=== PATIENT | male | born 1965 | race African-American/Black ===

== ENCOUNTER 2017-10-17 14:48 | Emergency (ER) | payer SELFPAY | END 2017-10-17 15:22 | disposition home or self-care (01) | LOC: BURERS 14:48 | DX: J20.9 Acute bronchitis, unspecified (principal); M70.71 Other bursitis of hip, right hip | CPT/HCPCS: 99283 ==

== ENCOUNTER 2017-11-04 14:22 | Emergency (ER) | payer SELFPAY | END 2017-11-04 14:45 | disposition home or self-care (01) | LOC: BURERS 14:22 | DX: M25.551 Pain in right hip (principal) | CPT/HCPCS: 99283 ==

== ENCOUNTER 2018-06-30 14:13 | Emergency (ER) | payer SELFPAY ==
--- NOTE | 2018-06-30 19:00 | RAD ---
LEFT ANKLE THREE VIEWS: 06/30/18 No fracture was seen. The joint appears intact. There is some mild soft tissue swelling. IMPRESSION: No acute bony finding. POS: HOME
== END 2018-06-30 15:03 | disposition home or self-care (01) ==
LOC: BURERS 14:13
DX: S93.402A Sprain of unspecified ligament of left ankle, initial encounter (principal); W20.8XXA Other cause of strike by thrown, projected or falling object, initial encounter

== ENCOUNTER 2018-11-03 21:50 | Emergency (ER) | payer OTHER, SELFPAY ==
[2018-11-03] MEDS ORDERED: Ketorolac Tromethamine 60 MG/2 ML VIAL ONE (22:13)
[2018-11-03] MEDS ORDERED: Ibuprofen 200 MG TAB ONE (22:16)
--- NOTE | 2018-11-03 22:47 | RAD ---
LEFT ANKLE THREE VIEWS 11/03/18 Comparison is made with the 06/30/18 study. The ankle mortise appears intact. No fracture was seen. The articular surfaces are smooth. IMPRESSION: No acute bony finding. POS: HOME
--- NOTE | 2018-11-03 22:48 | RAD ---
LEFT FOOT THREE VIEWS: 11/03/18 No fracture was seen. All bones appear intact. The joint showed no acute findings. IMPRESSION: No acute bony findings. POS: HOME
== END 2018-11-03 22:22 | disposition home or self-care (01) ==
LOC: BURERS 21:50
DX: S90.02XA Contusion of left ankle, initial encounter (principal); W20.8XXA Other cause of strike by thrown, projected or falling object, initial encounter
CPT/HCPCS: J1885

== ENCOUNTER 2019-08-10 20:23 | Emergency (ER) | payer OTHER, SELFPAY ==
[2019-08-10] MEDS ORDERED: hydrOXYzine 25 MG TAB ONE (20:37)
== END 2019-08-10 20:38 | disposition home or self-care (01) ==
LOC: BURERS 20:23
DX: L42 Pityriasis rosea (principal)
CPT/HCPCS: 99282

== ENCOUNTER 2019-08-14 11:45 | Emergency (ER) | payer SELFPAY | END 2019-08-14 12:04 | disposition home or self-care (01) | LOC: BURERS 11:45 | DX: M25.572 Pain in left ankle and joints of left foot (principal); W20.8XXA Other cause of strike by thrown, projected or falling object, initial encounter | CPT/HCPCS: 99281 ==

== ENCOUNTER 2020-09-27 21:23 | Emergency (ER) | payer OTHER, SELFPAY ==
[2020-09-28 16:13] LABS: SARS-CoV-2 PCR by NAA DETECTED (NotDetected)
== END 2020-09-27 21:55 | disposition home or self-care (01) ==
LOC: BURERS 21:23
DX: U07.1 COVID-19 (principal)
CPT/HCPCS: 99283; U0003; U0005

== ENCOUNTER 2020-11-13 09:38 | Emergency (ER) | payer SELFPAY | END 2020-11-13 10:02 | disposition home or self-care (01) | LOC: BURERS 09:38 | DX: Z03.89 Encounter for observation for other suspected diseases and conditions ruled out (principal) | CPT/HCPCS: 99283 ==

== ENCOUNTER 2022-03-30 17:29 | Emergency (ER) | payer BC, OTHER ==
[2022-03-30] MEDS ORDERED: HYDROcodone/Acetaminophen 10/325 mg Tablet ONE (17:57)
== END 2022-03-30 19:29 | disposition home or self-care (01) ==
LOC: BURERS 17:29
DX: M16.11 Unilateral primary osteoarthritis, right hip (principal)
CPT/HCPCS: 72170

== ENCOUNTER 2022-05-19 19:40 | Emergency (ER) | payer BC ==
[2022-05-19] MEDS ORDERED: Ibuprofen 800 MG TAB ONE (20:05)
== END 2022-05-19 20:04 | disposition home or self-care (01) ==
LOC: BURERS 19:40
DX: M25.551 Pain in right hip (principal)
CPT/HCPCS: 99283

== ENCOUNTER 2023-03-27 20:24 | Emergency (ER) | payer BC ==
[2023-03-27] MEDS ORDERED: predniSONE 20 MG TAB ONE (21:32)
== END 2023-03-27 21:47 | disposition home or self-care (01) ==
LOC: BURERS 20:24
DX: M16.0 Bilateral primary osteoarthritis of hip (principal)
CPT/HCPCS: J7512